=== PATIENT | female | born 1995 | race Caucasian/White ===

== ENCOUNTER 2017-01-21 17:37 | Inpatient (IN) | payer OTHER ==
[~2017-01-21] VITALS: Ht 154.9 cm; Wt 65.3 kg
[~2017-01-21 17:37] MED LIST: FERROUS SULFAT325 MG PO; PRENATAL VITAMI1 T10 PO; TYLENOL ES500 MG PO
[2017-01-21] MEDS ORDERED: LACTATED RINGERS 1,000 ML IV SCH (18:00)
[2017-01-21] MEDS ORDERED: LACTATED RINGERS 500 ML IV SCH (20:40)
[2017-01-21] MEDS ORDERED: MISOPROSTOL 25 MCG TAB VG SCH (20:45)
[2017-01-21] MEDS: LACTATED RINGERS 1,000 ML IV SCH (21:36)
[2017-01-21] MEDS ORDERED: MISOPROSTOL 25 MCG TAB ONE (21:43)
[2017-01-22] MEDS ORDERED: OXYTOCIN 10 UNITS/ML VIAL IM SCH (03:00)
[2017-01-22] MEDS ORDERED: OXYTOCIN 20 UNITS/LR PREMIX 1,000 ML IV SCH (03:00)
[2017-01-22] MEDS: LACTATED RINGERS 1,000 ML IV SCH (04:49)
[2017-01-22] MEDS ORDERED: ROPIVACAINE 0.2%/NS PREMIX 250 ML EPI ONE (05:33)
--- NOTE | 2017-01-22 09:10 | NUR ---
PATIENT HAS BEEN SCREENED AND CATEGORIZED LOW NUTRITION RISK. PATIENT WILL BE SEEN WITHIN 7 DAYS OF ADMISSION. 01/28/[address]
[2017-01-22] MEDS ORDERED: OXYTOCIN 20 UNITS/LR PREMIX 1,000 ML IV ONE (11:54)
[2017-01-22] MEDS ORDERED: OXYTOCIN 10 UNITS/ML VIAL ONE (13:03)
[2017-01-22] MEDS ORDERED: BISACODYL 5 MG TABEC PO PRN (13:45)
[2017-01-22] MEDS ORDERED: WITCH HAZEL 40 PAD PACKAGE TP PRN (13:45)
[2017-01-22] MEDS ORDERED: oxyCODONE/APAP 5/325 MG 1 TAB TAB PO PRN (13:45)
[2017-01-22] MEDS ORDERED: BENZOCAINE/MENTHOL 20%-0.5% 60 GM CAN TP PRN (13:45)
[2017-01-22] MEDS ORDERED: ACETAMINOPHEN 325 MG TAB PO PRN (13:45)
[2017-01-22] MEDS ORDERED: MEASLES, MUMPS, AND RUBELLA 1 VIAL SQVAC PRN (13:45)
[2017-01-24] MEDS ORDERED: TYLENOL EXTRA500 M3 PO (15:00)
== END 2017-01-24 15:55 | disposition home or self-care (01) | DRG 560 ==
LOC: MLD 17:37 → MFCC 01-22 16:00
PROVIDERS: ADMIT Obstetrics & Gynecology; ATTEND Obstetrics & Gynecology
PROC: 10E0XZZ Delivery of Products of Conception, External Approach (ICD-10-PCS; principal; 2017-01-22)
PROC: 10907ZC Drainage of Amniotic Fluid, Therapeutic from Products of Conception, Via Natural or Artificial Opening (ICD-10-PCS; 2017-01-22)
PROC: 3E0P7GC Introduction of Other Therapeutic Substance into Female Reproductive, Via Natural or Artificial Opening (ICD-10-PCS; 2017-01-22)
PROC: 00HU33Z Insertion of Infusion Device into Spinal Canal, Percutaneous Approach (ICD-10-PCS; 2017-01-22)
PROC: 3E0R3CZ (ICD-10-PCS; 2017-01-22)
PROC: 3E0234Z Introduction of Serum, Toxoid and Vaccine into Muscle, Percutaneous Approach (ICD-10-PCS; 2017-01-22)
PROC: 0HQ9XZZ Repair Perineum Skin, External Approach (ICD-10-PCS; 2017-01-22)
DX: O70.9 Perineal laceration during delivery, unspecified (principal); O41.03X0 Oligohydramnios, third trimester, not applicable or unspecified; Z3A.39 39 weeks gestation of pregnancy; Z37.0 Single live birth; Z23 Encounter for immunization